=== PATIENT | female | born 1990 | race Two or more races ===

== ENCOUNTER 2017-03-07 20:08 | Emergency (ER) | payer MEDICAID ==
[~2017-03-07] VITALS: Ht 172.7 cm; Wt 73.0 kg
[2017-03-07 20:59] VITALS: BP 123/75
== END 2017-03-07 22:21 | disposition home or self-care (01) ==
LOC: ER 21:51
DX: T74.21XA Adult sexual abuse, confirmed, initial encounter (principal); S80.12XA Contusion of left lower leg, initial encounter; F11.23 Opioid dependence with withdrawal; R03.0 Elevated blood-pressure reading, without diagnosis of hypertension; E86.0 Dehydration; R00.0 Tachycardia, unspecified; F41.1 Generalized anxiety disorder; F43.0 Acute stress reaction; R45.83 Excessive crying of child, adolescent or adult; F10.129 Alcohol abuse with intoxication, unspecified; Y90.9 Presence of alcohol in blood, level not specified; Y93.89 Activity, other specified; Y07.59 Other non-family member, perpetrator of maltreatment and neglect; Y92.59 Other trade areas as the place of occurrence of the external cause; Z65.8 Other specified problems related to psychosocial circumstances; F17.210 Nicotine dependence, cigarettes, uncomplicated; Z71.6 Tobacco abuse counseling
CPT/HCPCS: 99283; 99406; Z7610